=== PATIENT | female | born 1995 | race Caucasian/White ===

== ENCOUNTER 2021-05-18 14:13 | Emergency (ER) | payer MEDICAID ==
[~2021-05-18] VITALS: Ht 167.6 cm; Wt 73.9 kg
[2021-05-18 14:44] VITALS: BP 143/82
[2021-05-18 15:25] VITALS: BP 135/75
--- NOTE | 2021-05-18 15:25 | NUR ---
NO NURSING CARE GIVEN-Patient discharged with v/s stable. Written and verbal after care instructions given and explained. Patient alert, oriented and verbalized understanding of instructions. Ambulatory with steady gait. All questions addressed prior to discharge. ID band removed. Patient advised to follow up with PMD.NO Rx given. Patient educated on indication of medication including possible reaction and side effects. Opportunity to ask questions provided and answered.
== END 2021-05-18 15:25 | disposition home or self-care (01) ==
LOC: MED 14:13
DX: N94.6 Dysmenorrhea, unspecified (principal); Z90.49 Acquired absence of other specified parts of digestive tract
CPT/HCPCS: 81025; 99282

== ENCOUNTER 2022-07-29 06:09 | Emergency (ER) | payer MEDICAID, OTHER ==
[~2022-07-29] VITALS: Ht 165.1 cm; Wt 74.8 kg
[2022-07-29 06:25] VITALS: BP 140/83
--- NOTE | 2022-07-29 06:25 | NUR ---
TO BED AMBULATORY
[2022-07-29] MEDS ORDERED: ALUMINUM HYD/MAG/SIMETHICONE 30 ML UDC PO ONE (06:40)
[2022-07-29] MEDS ORDERED: FAMOTIDINE 20 MG TAB PO ONE (06:40)
--- NOTE | 2022-07-29 06:40 | NUR ---
EPIGASTRIC PAIN, RADIATING TO HER BACK TODAY AT 0600HOURS
[2022-07-29 07:28] LABS: BASOPHILS % (AUTO) 0.8 % (0.0-2.0); EOSINOPHILS # (AUTO) 0.2 K/uL (0-0.4); EOSINOPHILS % (AUTO) 4.1 % (0.0-4.0); HEMATOCRIT 37.1 % (36-48); HEMOGLOBIN 12.7 g/dL (12.0-16.0); LYMPHOCYTES # (AUTO) 1.7 K/uL (2.5-16.5); LYMPHOCYTES % (AUTO) 34.2 % (20.5-51.1); MEAN CORPUSCULAR HEMOGLOBIN 29 pg (27-31); MEAN CORPUSCULAR HGB CONC 34 g/dL (33-37); MEAN CORPUSCULAR VOLUME 85.2 fL (80-94); MONOCYTES # (AUTO) 0.5 K/uL (0.8-1.0); NEUTROPHILS # (AUTO) 2.5 K/uL (1.8-7.7); NEUTROPHILS % (AUTO) 50.9 % (42.2-75.2); PLATELET COUNT (AUTO) 225 K/uL (140-450); RED BLOOD CELL COUNT(AUTO) 4.36 MIL/uL (4.20-5.40); RED CELL DISTRIBUTION WIDTH 12.7 % (11.6-13.7); WHITE BLOOD COUNT (AUTO) 4.8 K/uL (4.8-10.8)
[2022-07-29 07:36] LABS: ALBUMIN 3.3 g/dL (3.4-5.0); CARBON DIOXIDE 24.1 mmol/L (21-32); CREATININE 0.8 mg/dL (0.6-1.3); POTASSIUM 4.1 mmol/L (3.5-5.1); TOTAL BILIRUBIN 0.2 mg/dL (0.0-1.0)
[2022-07-29] MEDS ORDERED: OMEP20EC11 PO (07:59)
[2022-07-29] MEDS ORDERED: SUCR1TAB35 PO (07:59)
[2022-07-29] MEDS ORDERED: FAMO-92 PO (07:59)
[2022-07-29 08:03] VITALS: BP 132/70
--- NOTE | 2022-07-29 08:10 | NUR ---
Patient discharged with v/s stable. Written and verbal after care instructions given and explained. Patient alert, oriented and verbalized understanding of instructions. Ambulatory with steady gait. All questions addressed prior to discharge. ID band removed. Patient advised to follow up with PMD. Rx of pepcid, prilosec, carafate given. Patient educated on indication of medication including possible reaction and side effects. Opportunity to ask questions provided and answered.
== END 2022-07-29 08:10 | disposition home or self-care (01) ==
LOC: MED 06:09
DX: K27.9 Peptic ulcer, site unspecified, unspecified as acute or chronic, without hemorrhage or perforation (principal); Z90.49 Acquired absence of other specified parts of digestive tract; Z79.899 Other long term (current) drug therapy
CPT/HCPCS: 36415; 80053; 81025; 83690; 85025; 99283

== ENCOUNTER 2022-07-31 03:50 | Emergency (ER) | payer OTHER ==
[~2022-07-31] VITALS: Ht 165.1 cm; Wt 74.8 kg
[~2022-07-31 03:50] MED LIST: FAMO-92 PO; OMEP20EC11 PO; SUCR1TAB35 PO
[2022-07-31 04:00] VITALS: BP 129/84
--- NOTE | 2022-07-31 04:03 | NUR ---
TO LOBBY A/W BED AMBULATORY
--- NOTE | 2022-07-31 04:45 | NUR ---
PT TAKEN TO BED 12
--- NOTE | 2022-07-31 04:48 | NUR ---
PT IS HERE FOR NAUSEA FOR 3 DAYS AND VOMITTING 2 X TIMESTODAY. PT DENIES TAKING ANYTHING ANYTHING. PT ALERT AND ORIENTED X4
[2022-07-31] MEDS ORDERED: ONDANSETRON 4 MG/2 ML VIAL IVP ONE (04:55)
[2022-07-31] MEDS ORDERED: NACL 0.9% 1,000 ML IV ONE (04:55)
[2022-07-31 05:13] LABS: BASOPHILS # (AUTO) 0.1 K/uL (0.00-0.22); BASOPHILS % (AUTO) 0.7 % (0.0-2.0); EOSINOPHILS # (AUTO) 0.2 K/uL (0-0.4); EOSINOPHILS % (AUTO) 2.4 % (0.0-4.0); HEMATOCRIT 41.6 % (36-48); HEMOGLOBIN 14.2 g/dL (12.0-16.0); LYMPHOCYTES # (AUTO) 2.4 K/uL (2.5-16.5); LYMPHOCYTES % (AUTO) 29.8 % (20.5-51.1); MEAN CORPUSCULAR HEMOGLOBIN 29 pg (27-31); MEAN CORPUSCULAR HGB CONC 34 g/dL (33-37); MEAN CORPUSCULAR VOLUME 84.5 fL (80-94); MONOCYTES # (AUTO) 0.6 K/uL (0.8-1.0); MONOCYTES % (AUTO) 7.5 % (1.7-9.3); NEUTROPHILS # (AUTO) 4.9 K/uL (1.8-7.7); NEUTROPHILS % (AUTO) 59.6 % (42.2-75.2); PLATELET COUNT (AUTO) 256 K/uL (140-450); RED BLOOD CELL COUNT(AUTO) 4.92 MIL/uL (4.20-5.40); WHITE BLOOD COUNT (AUTO) 8.2 K/uL (4.8-10.8)
[2022-07-31 05:25] LABS: ALBUMIN 3.8 g/dL (3.4-5.0); ANION GAP 13.8 (8-16); CARBON DIOXIDE 27.3 mmol/L (21-32); POTASSIUM 4.1 mmol/L (3.5-5.1); TOTAL BILIRUBIN 0.2 mg/dL (0.0-1.0)
[2022-07-31] MEDS ORDERED: MORPHINE SULFATE 4 MG/ML SYR IVP ONE (05:35)
[2022-07-31 05:41] LABS: APPEARANCE,URINE CLEAR (CLEAR); BILIRUBIN,URINE NEGATIVE (NEGATIVE); BLOOD, URINE 1+ (NEGATIVE); COLOR,URINE YELLOW (YELLOW); LEUKOCYTE ESTERASE ,URINE NEGATIVE (NEGATIVE); NITRITE, URINE NEGATIVE (NEGATIVE); UGLUCOSE NEGATIVE (NEGATIVE)
[2022-07-31 05:43] LABS: WBC,URINE 0-5 /HPF (0-5)
[2022-07-31 05:52] LABS: BARBITURATE, URINE NEGATIVE ng/ml (NEG <=200); BENZODIAZEPINE, URINE NEGATIVE ng/mL (NEG <=200); CANNABINOID, URINE NEGATIVE ng/mL (NEG <=50); COCAINE, URINE NEGATIVE ng/mL (NEG <=300); OPIATE, URINE NEGATIVE ng/mL (NEG <=2000); PHENCYCLIDINE SCREEN,URINE NEGATIVE ng/mL (NEG <=25)
--- NOTE | 2022-07-31 06:59 | NUR ---
Ultrasound at bedside.
[2022-07-31] MEDS ORDERED: KETOROLAC 15 MG/ML VIAL IVP ONE (07:05)
--- NOTE | 2022-07-31 07:30 | NUR ---
ASSUMED PATIENT CARE, CONCUR WITH PRIOR NURSING ASSESSMENT.
[2022-07-31] MEDS ORDERED: KETOROLAC 15 MG/ML VIAL ONE (11:30)
[2022-07-31 11:43] VITALS: BP 123/73
--- NOTE | 2022-07-31 11:44 | NUR ---
Patient discharged with v/s stable. Written and verbal after care instructions given and explained. Patient verbalized understanding. Ambulatory with steady gait. All questions addressed prior to discharge. Advised to follow up with PMD.
== END 2022-07-31 11:43 | disposition home or self-care (01) ==
LOC: MED 03:50
DX: R10.13 Epigastric pain (principal); R11.2 Nausea with vomiting, unspecified; Z90.49 Acquired absence of other specified parts of digestive tract; Z79.899 Other long term (current) drug therapy
CPT/HCPCS: 36415; 76705; 80053; 80305; 81001; 81025; 85025; 87086; 96361; 96374; 96375; 99285; J1885; J2270; J2405; J7030; Q0092